=== PATIENT | male | born 1955 ===

== ENCOUNTER 2019-03-07 14:06 | Emergency (ER) | payer OTHER ==
[~2019-03-07] VITALS: Ht 185.4 cm; Wt 129.3 kg
[2019-03-07] MEDS ORDERED: ASA81 MG PO (14:57)
== END 2019-03-07 15:56 | disposition home or self-care (01) ==
LOC: ER 14:06
DX: S91.341A Puncture wound with foreign body, right foot, initial encounter (principal); W45.8XXA Other foreign body or object entering through skin, initial encounter; Y93.89 Activity, other specified; Y92.89 Other specified places as the place of occurrence of the external cause; Y99.8 Other external cause status